=== PATIENT | male | born 1960 | race Two or more races ===

== ENCOUNTER 2019-01-01 09:40 | Outpatient (CLI) | payer OTHER ==
[~2019-01-01] VITALS: Ht 177.8 cm; Wt 78.5 kg
[2019-01-01] MEDS ORDERED: AMLODIPINE BESYL5 MG ORAL (12:06)
[2019-01-01 12:07] VITALS: BP 108/59
--- NOTE | 2019-01-01 16:00 | Consultation ---
DATE OF CONSULTATION: 01/01/2019 GASTROENTEROLOGY CONSULTATION CONSULTING PHYSICIAN: Norberto Caceres M.D. CHIEF COMPLAINT: Referral for screening colonoscopy. PAST MEDICAL HISTORY: Hypertension. PAST SURGICAL HISTORY: None. MEDICATIONS: Amlodipine. ALLERGIES: No known drug allergies. FAMILY HISTORY: Father had a cancer, but he does not know what kind. Mother had breast cancer. SOCIAL HISTORY: The patient drinks socially. He used to smoke 1 pack a day of cigarettes and no IV drug abuse. REVIEW OF SYSTEMS: A 10-point review of systems was performed and no obvious complaints. PHYSICAL EXAMINATION: VITAL SIGNS: Temperature 97.7, blood pressure is 108/59, pulse is 60, respirations 20. HEENT: Normocephalic and atraumatic. Sclerae are anicteric. NECK: Supple. No evidence of obvious lymphadenopathy. CARDIOVASCULAR: Regular rate and rhythm. Plus S1 and S2. No obvious murmur. LUNGS: Clear to auscultation bilaterally. ABDOMEN: Soft and nontender. No rebound. No guarding. No peritoneal sign. EXTREMITIES: No cyanosis. No clubbing. No edema. ASSESSMENT AND PLAN: This is a 58-year-old male, who needs a screening colonoscopy. The patient was given the instruction for colonoscopy. The prep was explained to him. The risks and benefits of procedure was explained to him, he agreed, so we are going to go ahead and schedule him for colonoscopy as soon as the authorization is approved. Norberto Caceres M.D. DR: KAMERON JOB#: [id number] CC:
== END 2019-01-01 11:40 | disposition home or self-care (01) ==
LOC: PAN 09:40
DX: I10 Essential (primary) hypertension (principal); Z79.899 Other long term (current) drug therapy; Z87.891 Personal history of nicotine dependence
CPT/HCPCS: G0463